=== PATIENT | female | born 1965 | race Caucasian/White ===

== ENCOUNTER 2019-10-10 20:57 | Emergency (ER) | payer OTHER ==
[~2019-10-10] VITALS: Ht 162.6 cm; Wt 99.8 kg
[~2019-10-10 20:57] MED LIST: NORCO 5-325 TA1 EACH PO
[2019-10-10 21:38] LABS: ABSOLUTE NEUTROPHILS 7.3 thou/uL (1.4-8.2); BASOPHILS 0.8 % (0.0-2.0); EOSINOPHILS 0.9 % (0.0-3.0); HEMATOCRIT 38.1 % (37.0-47.0); LYMPHOCYTES 9.6 % (24.0-44.0); MCH 30.7 pg (26.0-34.0); MCHC 34.1 g/dL (28.0-37.0); MCV 90.2 fL (80.0-100.0); PLATELET COUNT 222 thou/uL (150-400); POLYS 83.7 % (36.0-66.0); RBC 4.22 mil/uL (4.20-5.00); RDW 14.2 % (10.5-14.5); WBC 8.8 thou/uL (4.0-11.0)
[2019-10-10 21:47] LABS: ANION GAP 9 mmol/L (7-16); BUN 17 mg/dL (7-18); CALCIUM 8.3 mg/dL (8.5-10.1); CHLORIDE 99 mmol/L (98-107); CO2 24 mmol/L (21-32); CREATININE 1.2 mg/dL (0.6-1.0); GLUCOSE 101 mg/dL (74-106); POTASSIUM 3.7 mmol/L (3.5-5.1); SODIUM 132 mmol/L (136-145)
[2019-10-10 21:57] LABS: ALBUMIN 3.4 g/dL (3.4-5.0); LIPASE 103 U/L (73-393); SGOT 16 U/L (15-37); SGPT 18 U/L (30-65); TOTAL BILIRUBIN 0.5 mg/dL (0.2-1.0); TOTAL PROTEIN 6.9 g/dL (6.4-8.2); TROPONIN-I <0.06 ng/mL (<0.06)
[2019-10-10] MEDS ORDERED: NAPROSYN500 MG PO (23:31)
[2019-10-10] MEDS ORDERED: ONDANSETRON ODT8 MG PO (23:31)
[2019-10-10 23:52] LABS: URINE BILIRUBIN NEGATIVE (Negative); URINE BLOOD NEGATIVE (Negative); URINE CLARITY SL CLOUDY; URINE COLOR YELLOW; URINE GLUCOSE-RANDOM* 3+ (Negative); URINE KETONES NEGATIVE (Negative); URINE LEUKOCYTES-REFLEX NEGATIVE (Negative); URINE NITRITE-REFLEX NEGATIVE (Negative); URINE PROTEIN (DIPSTICK) NEGATIVE (Negative); URINE SPECIFIC GRAVITY 1.025 (1.005-1.035); URINE UROBILINOGEN 0.2 E.U./dl (0.2-1.0)
[2019-10-11] LABS: AMP/METHAMP Negative (Negative); BARBITURATES Negative (Negative); BENZODIAZEPINES Negative (Negative); COCAINE Negative (Negative); METHADONE Negative (Negative); OPIATES Negative (Negative); PCP Negative (Negative)
[2019-10-11 00:09] VITALS: BP 106/88
--- NOTE | 2019-10-11 14:05 | EKG ---
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
== END 2019-10-11 00:19 | disposition home or self-care (01) ==
LOC: ER 20:57
PROVIDERS: Emergency Medicine
DX: R11.2 Nausea with vomiting, unspecified (principal); R51 Headache; M79.622 Pain in left upper arm; Z79.899 Other long term (current) drug therapy

== ENCOUNTER 2020-08-03 14:45 | Inpatient (IN) | payer OTHER ==
[~2020-08-03] VITALS: Ht 147.3 cm; Wt 96.2 kg
[~2020-08-03 14:45] MED LIST changes: +NAPROSYN500 MG PO; +ONDANSETRON ODT8 MG PO
[2020-08-03 14:46] VITALS: BP 187/94
[2020-08-03 15:30] LABS: ABSOLUTE NEUTROPHILS 8.4 thou/uL (1.4-8.2); BASOPHILS 1.1 % (0.0-2.0); EOSINOPHILS 2.4 % (0.0-3.0); HEMATOCRIT 39.9 % (37.0-47.0); HEMOGLOBIN 13.3 gm/dL (12.0-15.0); LYMPHOCYTES 18.6 % (24.0-44.0); MCH 29.8 pg (26.0-34.0); MCHC 33.3 g/dL (28.0-37.0); MCV 89.6 fL (80.0-100.0); MONOCYTES 5.2 % (1.0-8.0); PLATELET COUNT 286 thou/uL (150-400); POLYS 72.7 % (36.0-66.0); RBC 4.46 mil/uL (4.20-5.00); RDW 14.4 % (10.5-14.5); WBC 11.6 thou/uL (4.0-11.0)
[2020-08-03 15:39] LABS: ANION GAP 7 mmol/L (7-16); BUN 15 mg/dL (7-18); CALCIUM 8.3 mg/dL (8.5-10.1); CHLORIDE 108 mmol/L (98-107); CO2 28 mmol/L (21-32); CREATININE 0.9 mg/dL (0.6-1.0); GLUCOSE 105 mg/dL (74-106); POTASSIUM 3.9 mmol/L (3.5-5.1); SODIUM 143 mmol/L (136-145)
[2020-08-03 15:49] LABS: ALBUMIN 3.5 g/dL (3.4-5.0); SGOT 15 U/L (15-37); SGPT 18 U/L (14-59); TOTAL BILIRUBIN 0.4 mg/dL (0.2-1.0); TROPONIN-I <0.06 ng/mL (<0.06)
[2020-08-03 18:17] VITALS: BP 176/88
--- NOTE | 2020-08-03 18:39 | NUR ---
assumed care of pt on arrival to unit. pt asymptomatic. pleasant. up ad sarah. aox4. appears regular sinus rhythm on telemetry. hypertensive but improving. orders pending. wcm.
[2020-08-03 19:24] VITALS: BP 156/90
--- NOTE | 2020-08-03 19:39 | NUR ---
PT RESTING IN BED WATCHING TV. PT RESTLESS, FIDGETING. FAST SPEECH. PT REPORTED CENTER CHEST DISCOMFORT, DISCUSSED ANXIETY AND HEARTBURN. BP DECREASED AND PT PLEASED. 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 PROVIDER ELECTRICIAN RADIO PAGED FOR POSSIBLE PRN.
--- NOTE | 2020-08-03 23:29 | NUR ---
PT AWAKENED FROM SLEEP WITH SEVERE HEADACHE VOMITTED SCANT FOOD PARTICLES. BP 167/99. PRN FOR BP WILL BE PROVIDED.
[2020-08-03 23:30] VITALS: BP 167/99
--- NOTE | 2020-08-03 23:48 | NUR ---
PT CONTINUES TO HAVE EMESIS. PROVIDER CALLED AND PRN OBTAINED.
--- NOTE | 2020-08-04 00:25 | NUR ---
PT ROCKING BACK AND FORTH IN BED, SQUIRMING. REPORTING ANXIETY. PT STATED HER HEADACHE IS A 7 TOP OF HER EYES TO THE TOP OF HER HEAD. NO MORE NAUSEA. PROVIDER CALLED. PT REQUESTING SOMETHING FOR HEADACHE AND SHE JUST WANTS TO SLEEP. NEW ORDER PROVIDED.
--- NOTE | 2020-08-04 01:55 | NUR ---
PT WAS RESTING IN BED ONCE ATIVAN WAS AVAILABLE, PT STILL REPORTED ANXIETY AND PROVIDED. WILL RECHECK VS AT 230.
[2020-08-04 02:59] VITALS: BP 151/71
--- NOTE | 2020-08-04 04:42 | NUR ---
PT WANDERED INTO TO THE [place] TO C/O CONTINUED HEADACHE. PT PRESENTING SLEEPY AND MEDICATED. PT RETURNED TO BED. BED ALARM ON.
[2020-08-04 05:48] LABS: HEMATOCRIT 40.5 % (37.0-47.0); MCHC 32.2 g/dL (28.0-37.0); MCV 90.3 fL (80.0-100.0); RBC 4.49 mil/uL (4.20-5.00); RDW 14.5 % (10.5-14.5); WBC 11.2 thou/uL (4.0-11.0)
[2020-08-04 06:02] LABS: ANION GAP 7 mmol/L (7-16); BUN 13 mg/dL (7-18); CALCIUM 8.6 mg/dL (8.5-10.1); CHLORIDE 107 mmol/L (98-107); CO2 26 mmol/L (21-32); CREATININE 0.9 mg/dL (0.6-1.0); GLUCOSE 139 mg/dL (74-106); MAGNESIUM 1.9 mg/dL (1.8-2.4); POTASSIUM 3.9 mmol/L (3.5-5.1); SODIUM 140 mmol/L (136-145)
[2020-08-04 06:13] LABS: CHOLESTEROL 160 mg/dL (<200); HDL CHOLESTEROL 51 mg/dL (>40); LDL CHOLESTEROL 90 mg/dL (<100); TC:HDL 3.1 Ratio (Not establshd); TRIGLYCERIDE 98 mg/dL (<150); VLDL 20 mg/dL (<40)
[2020-08-04 06:15] LABS: SERUM ASSESSMENT Clear
[2020-08-04 07:08] VITALS: BP 141/59
--- NOTE | 2020-08-04 09:31 | EKG ---
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 : 1965 Requested By: Kamila Gomez Order Number: [id number] MD: Joshua Mac Measurements Intervals [place] Rate: 81 P: VT: QRS: -26 QRSD: 103 T: 35 QT: 387 QTc: 450 Interpretive Statements Normal sinus rhythm Borderline left axis deviation Abnormal R-wave progression, late transition Nonspecific T wave abnormality Compared to ECG 10/10/2019 21:53:05 No significant change was found Electronically Signed On 08-04-2020 9:30:53 CDT by Joshua Mac [email or web address] <ELECTRONICALLY SIGNED> By: Joshua Mac MD, [facility] 08/04/20 1130 1500 1500 Joshua Mac MD, [facility] /EPI
--- NOTE | 2020-08-04 09:47 | 2DMMODE ---
[facility] [place] [address] 2 D/M-MODE ECHOCARDIOGRAM Name: CHRISTIAN VARGAS Room #: 359-P ADM IN M.R.#: [id number] Admission: 08/03/20 Attend Phys: Andrez Cordoba MD Discharge: Date of : 65 Report #: [id number] THIS REPORT FOR: cc: TANG - No family physician/PCP FAM - No family physician/PCP Rashard Dutton MD ~ APPROVED REPORT Study performed: 08/04/2020 08:02:32 EXAM: Comprehensive 2D, Doppler, and color-flow Echocardiogram Patient Location: Bedside Room #: 359 Status: routine BSA: 1.84 HR: 88 bpm BP: 141/59 mmHg Rhythm: NSR Other Information Study Quality: Good Indications Hypertensive urgency. 2D Dimensions RVDd: 30.79 mm IVSd: 17.06 (7-11mm) LVOT Diam: 20.46 (18-24mm) LVDd: 42.01 mm PWd: 13.66 (7-11mm) Ascending Ao: 34.67 (22-36mm) LVDs: 26.74 (25-40mm) Left Atrium: 35.53 (27-40mm) Volumes Left Atrial Volume (Systole) Single Plane 4CH: 44.85 mL Single Plane 2CH: 62.68 mL LA ESV Index: 32.00 mL/m2 Aortic Valve AoV Peak Jerald.: 2.12 m/s AO Peak Gr.: 17.92 mmHg LVOT Max P.77 mmHg LVOT Max V: 1.72 m/s WYATT Vmax: 2.66 cm2 [facility] [address] [place] [address] 2 D/M-MODE ECHOCARDIOGRAM Name: CHRISTIAN VARGAS Room #: 359-P [facility].#: [id number] Admission: 08/03/20 Attend Phys: Andrez Cordoba MD Discharge: Date of : 65 Report #: [id number] Mitral Valve E/A Ratio: 0.7 MV Decel. Time: 141.47 ms MV E Max Jerald.: 0.80 m/s MV A Jerald.: 1.13 m/s MV PHT: 41.03 ms IVRT: 76.12 ms Pulmonary Valve PV Peak Jerald.: 1.27 m/s PV Peak Gr.: 6.46 mmHg Pulmonary Vein P Vein S: 0.52 m/s P Vein D: 0.47 m/s P Vein S/D Ratio: 1.11 Tricuspid Valve RAP Estimate: 5.00 mmHg Left Ventricle The left ventricle is normal size. There is normal LV segmental wall motion. Mild concentric left ventricular hypertrophy. Moderate basal septal hypertrophy is present. Left ventricular systolic function is normal. LVEF is 65%. Mild diastolic dysfunction is present (impaired relaxation pattern). Right Ventricle The right ventricle is normal size. The right ventricular systolic function is normal. Atria Left atrium is at the upper limits of normal. The right atrium size is normal. Aortic Valve The aortic valve is normal in structure. Trace aortic regurgitation. There is no aortic valvular stenosis. Mitral Valve Mitral valve leaflets are mildly thickened. Mild mitral annular calcification. There is no mitral valve regurgitation noted. No evidence of mitral valve stenosis. Tricuspid Valve The tricuspid valve is normal in structure. There is no tricuspid valve regurgitation noted. Unable to assess PA pressure. [facility] [address] [place] [address] 2 D/M-MODE ECHOCARDIOGRAM Name: CHRISTIAN VARGAS Room #: 359-P ADM IN M.R.#: [id number] Admission: 08/03/20 Attend Phys: Andrze Cordoba MD Discharge: Date of : 65 Report #: [id number] Pulmonic Valve The pulmonary valve is normal in structure. Trace pulmonic regurgitation. Great Vessels The aortic root is normal in size. The ascending aorta is normal in size. IVC is normal in size and collapses >50% with inspiration. Pericardium There is no pericardial effusion. <Conclusion> The left ventricle is normal size. Mild concentric left ventricular hypertrophy. Moderate basal septal hypertrophy is present. LVEF is 65%. Left atrium is at the upper limits of normal. The aortic valve is normal in structure. Trace aortic regurgitation. Mitral valve leaflets are mildly thickened. Mild mitral annular calcification. The tricuspid valve is normal in structure. There is no tricuspid valve regurgitation noted. Unable to assess PA pressure. The pulmonary valve is normal in structure. Trace pulmonic regurgitation. The aortic root is normal in size. There is no pericardial effusion. <ELECTRONICALLY SIGNED> By: Rashard Dutton MD 08/04/2047 6 6 Rashard Dutton MD /INF
--- NOTE | 2020-08-04 11:38 | NUR ---
ORDERS RECEIVED FOR CLINICAL BEDSIDE SWALLOW EVALUATION AND COGNITIVE/COMMUNICATION EVALUATION D/T STANDING CVA ORDERS. HOWEVER RN - MIKE STATED THAT EVALUATION NOT DEEMED NECESSARY AT THIS TIME PATIENT'S SWALLOW, COMMUNICATION AND COGNITIVE SKILLS JUDGED WFL. HEARING AID ASSISTANT INSTRUCTED RN Nayana MCKEON TO RECONSULT SHOULD DEFICITS ARISE WARRANTING EVALUATION BY SKILLED ST THERAPIST. HEARING AID ASSISTANT TO SIGN OFF AT THIS TIME.
[2020-08-04] MEDS ORDERED: METOPROLOL SUCC25 M1 PO (13:04)
[2020-08-04] MEDS ORDERED: BUTALB-APAP-CA1 EACH PO (13:04)
[2020-08-04] MEDS ORDERED: ATORVASTATIN CA10 MG PO (13:04)
[2020-08-04] MEDS ORDERED: AMITRIPTYLINE H25 M2 PO (13:04)
[2020-08-04 13:43] VITALS: BP 141/59
--- NOTE | 2020-08-04 15:26 | NUR ---
ASSUMED PATIENT CARE AT 0700. A/0 X4. C/0 HEADACHE. MRI NEGATIVE FOR CVA. DC TO HOME NOW.
[2020-08-04 22:06] LABS: GLYCOHEMOGLOBIN (HGB A1C) 5.4 % (4.8-5.6)
== END 2020-08-04 15:27 | disposition home or self-care (01) | DRG 103 ==
LOC: ER 14:45 → EROBS 17:50 → 3W 18:04
PROVIDERS: Nurse Practitioner Family; ADMIT Internal Medicine; ATTEND Internal Medicine
DX: G43.901 Migraine, unspecified, not intractable, with status migrainosus (principal); Z68.41 Body mass index [BMI] 40.0-44.9, adult; I16.0 Hypertensive urgency; R73.9 Hyperglycemia, unspecified; E66.01 Morbid (severe) obesity due to excess calories
CPT/HCPCS: 10879